=== PATIENT | female | born 1985 ===

== ENCOUNTER 2023-02-22 06:58 | Inpatient (IN) | payer OTHER ==
[~2023-02-22] VITALS: Ht 162.6 cm; Wt 86.2 kg
[2023-02-24] MEDS ORDERED: SPRINTEC 28 DA1 EACH (08:07)
[2023-02-24] MEDS ORDERED: BUDESONIDE-FO10.2 G1 (08:07)
[2023-02-25] MEDS ORDERED: SIMETHICONE80 MG PO (14:11)
[2023-02-25] MEDS ORDERED: IBU800 MG PO (14:11)
[2023-02-25] MEDS ORDERED: COLACE100 MG PO (14:11)
[2023-02-25] MEDS ORDERED: PERCOCET 5-3251 EACH PO (14:11)
== END 2023-02-25 15:43 | disposition home or self-care (01) | DRG 743 ==
LOC: OB/GYN 02-24 05:45 → O/R 02-24 05:45 → SURG 02-24 09:00 → OB/GYN 02-24 15:26 → SURG 02-24 17:00 → OB/GYN 02-25 15:43
PROVIDERS: ADMIT Student in an Organized Health Care Education/Training Program; ATTEND Student in an Organized Health Care Education/Training Program
PROC: 0UT74ZZ Resection of Bilateral Fallopian Tubes, Percutaneous Endoscopic Approach (ICD-10-PCS; 2023-02-24)
PROC: 0DNW4ZZ Release Peritoneum, Percutaneous Endoscopic Approach (ICD-10-PCS; 2023-02-24)
PROC: 0UT94ZZ Resection of Uterus, Percutaneous Endoscopic Approach (ICD-10-PCS; principal; 2023-02-24 17:00)
DX: N80.03 Adenomyosis of the uterus (principal); Z20.822 Contact with and (suspected) exposure to COVID-19